=== PATIENT | female | born 1960 | race Asian ===

== ENCOUNTER 2020-04-30 05:40 | Inpatient (IN) | payer OTHER ==
[2020-04-24 12:14] VITALS: BP 159/85
[~2020-04-30] VITALS: Ht 160 cm; Wt 78.0 kg
[~2020-04-30 05:40] MED LIST: ALLO100T30 PO; AMIT25TA PO; CHOL500045 PO; GABA-826 PO; GABA300C10 PO; LEVO25TA4 PO; METH5TAB6 PO; METO50TA82 PO; NORE0.3535 PO; PANT40TA3 PO
[2020-04-30] MEDS ORDERED: LACTATED RINGERS 1,000 ML IV SCH (06:24)
[2020-04-30] MEDS ORDERED: METO50TA82 PO (06:30)
[2020-04-30] MEDS ORDERED: GABA100C PO (06:30)
[2020-04-30] MEDS ORDERED: PANT40TA6 PO (06:30)
[2020-04-30] MEDS ORDERED: CHLORHEXIDINE 15 ML UDC MM ONE (06:30)
[2020-04-30] MEDS ORDERED: AMIT25TA PO (06:30)
[2020-04-30] MEDS ORDERED: ALLO300T PO (06:30)
[2020-04-30] MEDS ORDERED: LEVO100T5 PO (06:30)
[2020-04-30] MEDS ORDERED: BACITRACIN 50,000 UNIT ONE (06:42)
[2020-04-30] MEDS ORDERED: MIDAZOLAM 1 MG/ML, 2ML ONE (07:26)
[2020-04-30] MEDS ORDERED: FENTANYL PF 250 MCG/5ML ONE (07:27)
[2020-04-30] MEDS ORDERED: ACETAMINOPHEN 325 MG TABLET PO PRN (08:30)
[2020-04-30] MEDS ORDERED: FENTANYL PF 100 MCG/2ML IV PRN (08:30)
[2020-04-30] MEDS ORDERED: MEPERIDINE/PF 25MG/0.5ML IVPush PRN (08:30)
[2020-04-30] MEDS ORDERED: HYDROmorphone 1 MG/ML, 1ML INJ IVPush PRN (08:30)
[2020-04-30] MEDS ORDERED: EPHEDRINE 50 MG/ML, 1ML IM PRN (08:30)
[2020-04-30] MEDS ORDERED: OXYcodone 5 MG/5 ML ORAL.SOL UDC PO PRN (08:30)
[2020-04-30] MEDS ORDERED: DIPHENHYDRAMINE 50 MG/ML, 1ML IVPush PRN ×2 (08:30→12:30)
[2020-04-30] MEDS ORDERED: ALBUTEROL SULFATE 2.5 MG/3 ML NPPB PRN (08:30)
[2020-04-30] MEDS ORDERED: METHOCARBAMOL 1,000 MG in DEXTROSE 5% 100 ML IV PRN (08:30)
[2020-04-30] MEDS ORDERED: LABETALOL 5MG/ML, 20ML IV PRN (08:30)
[2020-04-30] MEDS ORDERED: hydrALAzine 20 MG/ML, 1ML IV PRN (08:30)
[2020-04-30] MEDS ORDERED: LORazepam 2 MG/ML, 1ML IVPush PRN (08:30)
[2020-04-30] MEDS ORDERED: HEPARIN 1,000 UNITS/ML, 30ML IVPB ONE (08:37)
[2020-04-30] MEDS ORDERED: VANCOMYCIN 1,000 MG IM ONE (08:39)
[2020-04-30] MEDS ORDERED: DEXAMETHASONE 4 MG/ML, 1ML ONE (09:20)
[2020-04-30] MEDS ORDERED: SUCCINYLCHOLINE 20 MG/ML, 10ML ONE (09:20)
[2020-04-30] MEDS ORDERED: NEOSTIGMINE 1 MG/ML, 10ML ONE (09:20)
[2020-04-30] MEDS ORDERED: ONDANSETRON 2MG/ML, 2ML ONE (09:20)
[2020-04-30] MEDS ORDERED: ROCURONIUM 10MG/ML,5ML ONE (09:20)
[2020-04-30] MEDS ORDERED: PROPOFOL 10 MG/ML, 20ML ONE (09:20)
[2020-04-30] MEDS ORDERED: GLYCOPYRROLATE 0.2MG/1ML, 5ML ONE (09:20)
[2020-04-30] MEDS ORDERED: CEFAZOLIN 1,000 MG ONE (09:20)
[2020-04-30] MEDS ORDERED: OXYcodone 5 MG/5 ML ORAL.SOL UDC ONE (10:41)
[2020-04-30] MEDS ORDERED: ACETAMINOPHEN 650 MG/20.3 ML UDC ONE (10:41)
[2020-04-30] MEDS ORDERED: FENTANYL PF 100 MCG/2ML ONE (10:41)
[2020-04-30] MEDS ORDERED: VANCOMYCIN 1,000 MG ONE (12:14)
[2020-04-30] MEDS ORDERED: BISACODYL 10 MG SUPP PR PRN (12:30)
[2020-04-30] MEDS ORDERED: ONDANSETRON 2MG/ML, 2ML IV PRN (12:30)
[2020-04-30] MEDS ORDERED: HYDROcodone/APAP 10/325 MG TABLET PO PRN (12:30)
[2020-04-30] MEDS ORDERED: DIPHENHYDRAMINE 50 MG/ML, 1ML IM PRN (12:30)
[2020-04-30] MEDS ORDERED: morphine SULFATE 10 MG/ML, 1ML IV PRN (12:30)
[2020-04-30] MEDS: HYDROcodone/APAP 5/325 TABLET PO PRN ×2 (12:57→18:21)
[2020-04-30] MEDS: METHOCARBAMOL 750 MG TABLET PO SCH ×2 (13:00→20:07)
[2020-04-30] MEDS ORDERED: DIPHENHYDRAMINE 25 MG CAPSULE PO PRN (13:00)
[2020-04-30 13:43] VITALS: BP 98/58
[2020-04-30] MEDS ORDERED: METHOCARBAMOL 1,000 MG in DEXTROSE 5% 100 ML IV ONE (14:00)
[2020-04-30] MEDS: D5%-0.9% NACL+KCL 20MEQ 1,000 ML IV SCH (16:09)
[2020-04-30] MEDS: CEFAZOLIN PMX 1GM/50ML 50 ML IVPB SCH (16:11)
[2020-04-30 18:52] VITALS: BP 101/60
[2020-04-30] MEDS: METHOCARBAMOL 750 MG in DEXTROSE 5% 100 ML IV SCH (20:06)
[2020-04-30] MEDS: GABAPENTIN 100 MG CAPSULE PO SCH (20:07)
[2020-04-30] MEDS: AMITRIPTYLINE 25 MG TABLET PO SCH (20:07)
[2020-05-01 00:20] VITALS: BP 107/59
[2020-05-01] MEDS: CEFAZOLIN PMX 1GM/50ML 50 ML IVPB SCH (00:26)
[2020-05-01] MEDS: HYDROcodone/APAP 5/325 TABLET PO PRN ×5 (00:31→21:44)
[2020-05-01] MEDS: D5%-0.9% NACL+KCL 20MEQ 1,000 ML IV SCH ×2 (03:48→20:00)
[2020-05-01] MEDS: METHOCARBAMOL 750 MG in DEXTROSE 5% 100 ML IV SCH ×3 (03:48→21:37)
[2020-05-01 04:06] VITALS: BP 104/62
[2020-05-01] MEDS: METHOCARBAMOL 750 MG TABLET PO SCH ×2 (05:00→13:00)
[2020-05-01] MEDS: LEVOTHYROXINE 100 MCG TABLET PO SCH (05:33)
[2020-05-01] MEDS: ENOXAPARIN 30 MG/0.3 ML SQ SCH ×2 (05:33→17:32)
[2020-05-01] MEDS: PANTOPRAZOLE 40MG TABLET PO SCH (05:34)
[2020-05-01 05:36] LABS: BASOPHILS # (AUTO) 0.16 x10^3/uL (0-0.1); BASOPHILS % (AUTO) 1 % (0-1); EOSINOPHILS # (AUTO) 0.01 x10^3/uL (0-0.4); EOSINOPHILS % (AUTO) 0 % (1-7); LYMPHOCYTES # (AUTO) 1.84 x10^3/uL (1-3.4); LYMPHOCYTES % (AUTO) 13 % (22-44); MD NO; MEAN CORPUSCULAR HEMOGLOBIN 31.1 pg (27.0-34.8); MEAN CORPUSCULAR HGB CONC 32.9 g/dL (32.4-35.8); MEAN PLATELET VOLUME 8.8 fL (7.4-10.4); MONOCYTES # (AUTO) 0.69 x10^3/uL (0.2-0.8); MONOCYTES % (AUTO) 5 % (2-9); NEUTROPHILS # (AUTO) 11.56 x10^3/uL (1.8-6.8); NEUTROPHILS % (AUTO) 81 % (42-75); PLATELET COUNT 310 x10^3/uL (130-400); RED BLOOD COUNT 4.16 x10^6/uL (3.82-5.3); RED CELL DISTRIBUTION WIDTH 13.8 % (9.6-15.2)
[2020-05-01 05:44] LABS: ANION GAP 8 mmol/L (5-15); CALCIUM 7.9 mg/dL (8.5-10.1); CHLORIDE 109 mmol/L (98-107); CREATININE 0.96 mg/dL (0.55-1.02)
[2020-05-01 06:46] VITALS: BP 91/56
[2020-05-01] MEDS: METOPROLOL TARTRATE 50 MG TAB PO SCH (09:00)
[2020-05-01] MEDS: ALLOPURINOL 300 MG TABLET PO SCH (09:15)
[2020-05-01] MEDS: SENNA/DOCUSATE TABLET PO SCH ×2 (09:15→21:39)
[2020-05-01] MEDS: CHOLECALCIFEROL 5,000u TAB PO SCH (09:15)
[2020-05-01 15:03] VITALS: BP_SYST 100; BP_SYST 90; BP_DIAS 51; BP_DIAS 64
[2020-05-01] MEDS: MAGNESIUM HYDROXIDE 8%, 30ML UDC PO PRN (17:44)
[2020-05-01 18:39] VITALS: BP 127/82
[2020-05-01] MEDS: GABAPENTIN 100 MG CAPSULE PO SCH (21:38)
[2020-05-01] MEDS: AMITRIPTYLINE 25 MG TABLET PO SCH (21:39)
[2020-05-02 02:16] VITALS: BP 114/71
[2020-05-02 05:02] LABS: ANION GAP 8 mmol/L (5-15); CALCIUM 7.8 mg/dL (8.5-10.1); CHLORIDE 110 mmol/L (98-107)
[2020-05-02 05:07] LABS: BASOPHILS # (AUTO) 0.05 x10^3/uL (0-0.1); BASOPHILS % (AUTO) 1 % (0-1); EOSINOPHILS # (AUTO) 0.21 x10^3/uL (0-0.4); EOSINOPHILS % (AUTO) 2 % (1-7); LYMPHOCYTES # (AUTO) 3.65 x10^3/uL (1-3.4); LYMPHOCYTES % (AUTO) 33 % (22-44); MD NO; MEAN CORPUSCULAR HEMOGLOBIN 30.6 pg (27.0-34.8); MEAN CORPUSCULAR HGB CONC 31.9 g/dL (32.4-35.8); MEAN PLATELET VOLUME 8.2 fL (7.4-10.4); MONOCYTES # (AUTO) 0.77 x10^3/uL (0.2-0.8); MONOCYTES % (AUTO) 7 % (2-9); NEUTROPHILS # (AUTO) 6.36 x10^3/uL (1.8-6.8); NEUTROPHILS % (AUTO) 58 % (42-75); PLATELET COUNT 283 x10^3/uL (130-400); RED BLOOD COUNT 4.02 x10^6/uL (3.82-5.3); RED CELL DISTRIBUTION WIDTH 13.9 % (9.6-15.2)
[2020-05-02] MEDS: D5%-0.9% NACL+KCL 20MEQ 1,000 ML IV SCH (06:00)
[2020-05-02] MEDS: ENOXAPARIN 30 MG/0.3 ML SQ SCH (06:46)
[2020-05-02] MEDS: LEVOTHYROXINE 100 MCG TABLET PO SCH (06:46)
[2020-05-02] MEDS: PANTOPRAZOLE 40MG TABLET PO SCH (06:47)
[2020-05-02] MEDS: METHOCARBAMOL 750 MG in DEXTROSE 5% 100 ML IV SCH ×2 (06:47→10:11)
[2020-05-02 06:53] VITALS: BP 122/76
[2020-05-02] MEDS: HYDROcodone/APAP 5/325 TABLET PO PRN ×2 (08:31→12:14)
[2020-05-02] MEDS: SENNA/DOCUSATE TABLET PO SCH (08:31)
[2020-05-02] MEDS: ALLOPURINOL 300 MG TABLET PO SCH (08:32)
[2020-05-02] MEDS: METOPROLOL TARTRATE 50 MG TAB PO SCH (08:32)
[2020-05-02] MEDS: CHOLECALCIFEROL 5,000u TAB PO SCH (08:32)
[2020-05-02] MEDS: MAGNESIUM HYDROXIDE 8%, 30ML UDC PO PRN (08:32)
[2020-05-02] MEDS ORDERED: METH750T87 PO (10:48)
[2020-05-02] MEDS ORDERED: ENOX40SY4 SQ (10:49)
[2020-05-02] MEDS ORDERED: HYDR-3246 PO (10:52)
[2020-05-02 12:51] VITALS: BP 102/68
[2020-05-02] MEDS ORDERED: METHOCARBAMOL 750 MG TABLET PO SCH (15:00)
[2020-06-05] MEDS ORDERED: HYDR-3240 PO (15:29)
== END 2020-05-02 14:00 | disposition home or self-care (01) | DRG 460 ==
LOC: ORIP 05:40 → 4NE 11:38 → DCLOUNGE 05-02 13:30
PROVIDERS: ADMIT Orthopaedic Surgery Orthopaedic Surgery of the Spine; ATTEND Orthopaedic Surgery Orthopaedic Surgery of the Spine
PROC: 0SB40ZZ Excision of Lumbosacral Disc, Open Approach (ICD-10-PCS; 2020-04-30)
PROC: 01NB0ZZ Release Lumbar Nerve, Open Approach (ICD-10-PCS; 2020-04-30)
PROC: 01NR0ZZ Release Sacral Nerve, Open Approach (ICD-10-PCS; 2020-04-30)
PROC: 3E0U0GB Introduction of Recombinant Bone Morphogenetic Protein into Joints, Open Approach (ICD-10-PCS; 2020-04-30)
PROC: 0SG30A0 Fusion of Lumbosacral Joint with Interbody Fusion Device, Anterior Approach, Anterior Column, Open Approach (ICD-10-PCS; principal; 2020-04-30 07:30)
DX: M51.17 Intervertebral disc disorders with radiculopathy, lumbosacral region (principal); G89.29 Other chronic pain; E66.01 Morbid (severe) obesity due to excess calories; Z20.828 Contact with and (suspected) exposure to other viral communicable diseases; Z68.30 Body mass index [BMI] 30.0-30.9, adult; Z79.899 Other long term (current) drug therapy
CPT/HCPCS: 36415; 72100; 74018; 80048; 85025; 87635; C1713; G0378; J0690; J1100; J1644; J1650; J2250; J2405; J2704; J2710; J3010; J3370; C1762; C1889; J0330; J2800; J3480; J7120

== ENCOUNTER → 2020-06-05 | Outpatient (CLI) | payer OTHER ==
[~2020-06-05] MED LIST changes: +ALLO300T PO; +ENOX40SY4 SQ; +GABA100C PO; +HYDR-3240 PO; +HYDR-3246 PO; +LEVO100T5 PO; +METH750T87 PO; +PANT40TA6 PO
[2020-06-05 15:43] LABS: MICROSCOPIC NOT IND
[2020-06-05 15:45] LABS: BASOPHILS # (AUTO) 0.03 x10^3/uL (0-0.1); BASOPHILS % (AUTO) 0 % (0-1); EOSINOPHILS # (AUTO) 0.07 x10^3/uL (0-0.4); EOSINOPHILS % (AUTO) 1 % (1-7); LYMPHOCYTES # (AUTO) 2.61 x10^3/uL (1-3.4); LYMPHOCYTES % (AUTO) 39 % (22-44); MD NO; MEAN CORPUSCULAR HEMOGLOBIN 31.2 pg (27.0-34.8); MEAN CORPUSCULAR HGB CONC 33.1 g/dL (32.4-35.8); MEAN CORPUSCULAR VOLUME 94.2 fL (80-100); MEAN PLATELET VOLUME 8.9 fL (7.4-10.4); MONOCYTES # (AUTO) 0.38 x10^3/uL (0.2-0.8); MONOCYTES % (AUTO) 6 % (2-9); NEUTROPHILS # (AUTO) 3.55 x10^3/uL (1.8-6.8); NEUTROPHILS % (AUTO) 54 % (42-75); PLATELET COUNT 263 x10^3/uL (130-400); RED BLOOD COUNT 4.91 x10^6/uL (3.82-5.3); RED CELL DISTRIBUTION WIDTH 13.7 % (9.6-15.2)
[2020-06-05 15:53] LABS: INTERNATIONAL NORMALIZED RATIO 0.94 (0.93-1.1); PROTHROMBIN TIME 9.7 Seconds (9.6-11.5)
[2020-06-05 15:55] LABS: ALANINE AMINOTRANSFERASE 29 U/L (12-78); ALBUMIN 4.1 g/dL (3.4-5.0); ANION GAP 4 mmol/L (5-15); CALCIUM 10.1 mg/dL (8.5-10.1); CHLORIDE 112 mmol/L (98-107); CREATININE 0.87 mg/dL (0.55-1.02)
[2020-06-05 15:57] LABS: ALKALINE PHOSPHATASE 151 U/L (45-117); BILIRUBIN,TOTAL 0.9 mg/dL (0.2-1.0)
== END | disposition home or self-care (01) ==
LOC: STAR 14:08
PROVIDERS: ATTEND Orthopaedic Surgery Orthopaedic Surgery of the Spine
DX: Z01.812 Encounter for preprocedural laboratory examination (principal); Z20.828 Contact with and (suspected) exposure to other viral communicable diseases; M43.16 Spondylolisthesis, lumbar region
CPT/HCPCS: 36415; 80053; 81003; 85025; 85610; 85730; 87635

== ENCOUNTER 2020-06-11 07:30 | Inpatient (IN) | payer OTHER ==
[~2020-06-11] VITALS: Ht 160 cm; Wt 86.3 kg
[2020-06-13] MEDS ORDERED: EPINEPHRINE 1 MG/ML, 1ML ONE ×2 (09:06→14:17)
[2020-06-13] MEDS ORDERED: BUPIVACAINE/PF 0.25% ONE ×2 (09:06→14:17)
[2020-06-13] MEDS ORDERED: LIDOCAINE/PF 0.5% ,50ML ONE ×2 (09:06→14:17)
[2020-06-13] MEDS ORDERED: VANCOMYCIN 1,000 MG ONE ×2 (09:06→14:17)
[2020-06-13 10:51] VITALS: BP 122/84
[2020-06-13] MEDS ORDERED: LACTATED RINGERS 1,000 ML IV SCH (10:57)
[2020-06-13] MEDS ORDERED: CHLORHEXIDINE 15 ML UDC MM ONE (11:00)
[2020-06-13] MEDS ORDERED: MIDAZOLAM 1 MG/ML, 2ML ONE (11:45)
[2020-06-13] MEDS ORDERED: FENTANYL PF 250 MCG/5ML ONE ×2 (11:45→16:09)
[2020-06-13] MEDS ORDERED: PROPOFOL 10 MG/ML, 20ML ONE (11:49)
[2020-06-13] MEDS ORDERED: DEXAMETHASONE 4 MG/ML, 1ML ONE (11:49)
[2020-06-13] MEDS ORDERED: NEOSTIGMINE 1 MG/ML, 10ML ONE (11:49)
[2020-06-13] MEDS ORDERED: ONDANSETRON 2MG/ML, 2ML ONE (11:49)
[2020-06-13] MEDS ORDERED: ROCURONIUM 10MG/ML,5ML ONE (11:49)
[2020-06-13] MEDS ORDERED: GLYCOPYRROLATE 0.2MG/1ML, 5ML ONE (11:49)
[2020-06-13] MEDS ORDERED: CEFAZOLIN 1,000 MG ONE (11:49)
[2020-06-13] MEDS ORDERED: FENTANYL PF 100 MCG/2ML IV PRN (14:30)
[2020-06-13] MEDS ORDERED: MEPERIDINE/PF 25MG/0.5ML IVPush PRN (14:30)
[2020-06-13] MEDS ORDERED: ACETAMINOPHEN 325 MG TABLET PO PRN (14:30)
[2020-06-13] MEDS ORDERED: hydrALAzine 20 MG/ML, 1ML IV PRN (14:30)
[2020-06-13] MEDS ORDERED: HYDROmorphone 1 MG/ML, 1ML INJ IVPush PRN (14:30)
[2020-06-13] MEDS ORDERED: PROMETHAZINE 25 MG/ML, 1ML IVPush PRN (14:30)
[2020-06-13] MEDS ORDERED: OXYcodone 5 MG/5 ML ORAL.SOL UDC PO PRN (14:30)
[2020-06-13] MEDS ORDERED: HALOPERIDOL 5 MG/ML IV PRN (14:30)
[2020-06-13] MEDS ORDERED: LABETALOL 5MG/ML, 20ML IV PRN (14:30)
[2020-06-13] MEDS ORDERED: morphine SULFATE 10 MG/ML, 1ML IVPush PRN (14:30)
[2020-06-13] MEDS ORDERED: OXYcodone 5 MG/5 ML ORAL.SOL UDC ONE (18:21)
[2020-06-13] MEDS ORDERED: FENTANYL PF 100 MCG/2ML ONE (18:21)
[2020-06-13 19:00] VITALS: BP 104/57
[2020-06-13] MEDS ORDERED: ONDANSETRON 2MG/ML, 2ML IV PRN (19:30)
[2020-06-13] MEDS ORDERED: MAGNESIUM HYDROXIDE 8%, 30ML UDC PO PRN (19:30)
[2020-06-13] MEDS ORDERED: PROMETHAZINE 25 MG/ML, 1ML IM PRN (19:30)
[2020-06-13] MEDS ORDERED: DIPHENHYDRAMINE 50 MG/ML, 1ML IVPush PRN (19:30)
[2020-06-13] MEDS ORDERED: SODIUM CHLORIDE 0.9% 1,000ML IV PRN (19:30)
[2020-06-13] MEDS ORDERED: DIPHENHYDRAMINE 50 MG/ML, 1ML IM PRN (19:30)
[2020-06-13] MEDS ORDERED: DIPHENHYDRAMINE 25 MG CAPSULE PO PRN (19:30)
[2020-06-13] MEDS ORDERED: HYDROcodone/APAP 10/325 MG TABLET PO PRN (19:30)
[2020-06-13] MEDS ORDERED: BISACODYL 10 MG SUPP PR PRN (19:30)
[2020-06-13] MEDS ORDERED: METHOCARBAMOL 750 MG TABLET PO PRN (20:00)
[2020-06-13] MEDS ORDERED: morphine SULFATE 10 MG/ML, 1ML IV PRN (20:00)
[2020-06-13] MEDS: AMITRIPTYLINE 25 MG TABLET PO SCH (21:56)
[2020-06-13] MEDS: GABAPENTIN 100 MG CAPSULE PO SCH (21:56)
[2020-06-13] MEDS: SENNA/DOCUSATE TABLET PO SCH (21:56)
[2020-06-13] MEDS: ALLOPURINOL 300 MG TABLET PO SCH (21:57)
[2020-06-13] MEDS: CEFAZOLIN PMX 1GM/50ML 50 ML IVPB SCH (22:54)
[2020-06-14 01:42] VITALS: BP 97/46
[2020-06-14 04:29] VITALS: BP 106/64
[2020-06-14] MEDS: D5%-0.9% NACL+KCL 20MEQ 1,000 ML IV SCH ×3 (05:10→23:01)
[2020-06-14] MEDS: LEVOTHYROXINE 100 MCG TABLET PO SCH (05:55)
[2020-06-14 06:00] LABS: ANION GAP 9 mmol/L (5-15); CHLORIDE 107 mmol/L (98-107)
[2020-06-14 06:01] LABS: CALCIUM 8.9 mg/dL (8.5-10.1); CREATININE 0.96 mg/dL (0.55-1.02)
[2020-06-14 06:15] LABS: BASOPHILS # (AUTO) 0.06 x10^3/uL (0-0.1); BASOPHILS % (AUTO) 1 % (0-1); EOSINOPHILS % (AUTO) 0 % (1-7); LYMPHOCYTES # (AUTO) 1.49 x10^3/uL (1-3.4); LYMPHOCYTES % (AUTO) 13 % (22-44); MD NO; MEAN CORPUSCULAR HEMOGLOBIN 30.8 pg (27.0-34.8); MEAN CORPUSCULAR HGB CONC 32.3 g/dL (32.4-35.8); MEAN CORPUSCULAR VOLUME 95.2 fL (80-100); MEAN PLATELET VOLUME 8.2 fL (7.4-10.4); MONOCYTES # (AUTO) 0.27 x10^3/uL (0.2-0.8); MONOCYTES % (AUTO) 2 % (2-9); NEUTROPHILS # (AUTO) 10.13 x10^3/uL (1.8-6.8); NEUTROPHILS % (AUTO) 85 % (42-75); PLATELET COUNT 282 x10^3/uL (130-400); RED CELL DISTRIBUTION WIDTH 13.5 % (9.6-15.2)
[2020-06-14] MEDS: CEFAZOLIN PMX 1GM/50ML 50 ML IVPB SCH (06:40)
[2020-06-14 08:10] VITALS: BP 113/69
[2020-06-14] MEDS: PANTOPRAZOLE 40MG TABLET PO SCH (09:04)
[2020-06-14] MEDS: METOPROLOL TARTRATE 50 MG TAB PO SCH (09:04)
[2020-06-14] MEDS: SENNA/DOCUSATE TABLET PO SCH ×2 (09:04→21:11)
[2020-06-14 14:45] VITALS: BP 103/63
[2020-06-14 19:29] VITALS: BP 114/77
[2020-06-14] MEDS: ALLOPURINOL 300 MG TABLET PO SCH (21:11)
[2020-06-14] MEDS: GABAPENTIN 100 MG CAPSULE PO SCH (21:11)
[2020-06-14] MEDS: AMITRIPTYLINE 25 MG TABLET PO SCH (21:11)
[2020-06-15 03:19] VITALS: BP 100/61
[2020-06-15] MEDS: LEVOTHYROXINE 100 MCG TABLET PO SCH (05:36)
[2020-06-15 05:44] LABS: ANION GAP 5 mmol/L (5-15); CALCIUM 8.5 mg/dL (8.5-10.1); CHLORIDE 106 mmol/L (98-107)
[2020-06-15 05:45] LABS: CREATININE 0.86 mg/dL (0.55-1.02)
[2020-06-15 05:46] LABS: BASOPHILS # (AUTO) 0.03 x10^3/uL (0-0.1); BASOPHILS % (AUTO) 0 % (0-1); EOSINOPHILS # (AUTO) 0.14 x10^3/uL (0-0.4); EOSINOPHILS % (AUTO) 1 % (1-7); LYMPHOCYTES # (AUTO) 3.29 x10^3/uL (1-3.4); LYMPHOCYTES % (AUTO) 29 % (22-44); MD NO; MEAN CORPUSCULAR HEMOGLOBIN 30.7 pg (27.0-34.8); MEAN CORPUSCULAR HGB CONC 32.2 g/dL (32.4-35.8); MEAN CORPUSCULAR VOLUME 95.4 fL (80-100); MEAN PLATELET VOLUME 8.2 fL (7.4-10.4); MONOCYTES # (AUTO) 0.78 x10^3/uL (0.2-0.8); MONOCYTES % (AUTO) 7 % (2-9); NEUTROPHILS # (AUTO) 6.96 x10^3/uL (1.8-6.8); NEUTROPHILS % (AUTO) 62 % (42-75); PLATELET COUNT 273 x10^3/uL (130-400); RED BLOOD COUNT 3.84 x10^6/uL (3.82-5.3)
[2020-06-15 07:28] VITALS: BP 99/62
[2020-06-15] MEDS: METOPROLOL TARTRATE 50 MG TAB PO SCH (08:15)
[2020-06-15] MEDS: SENNA/DOCUSATE TABLET PO SCH ×2 (08:15→21:51)
[2020-06-15] MEDS: PANTOPRAZOLE 40MG TABLET PO SCH (08:15)
[2020-06-15] MEDS: D5%-0.9% NACL+KCL 20MEQ 1,000 ML IV SCH ×2 (08:16→20:45)
[2020-06-15] MEDS: HYDROcodone/APAP 5/325 TABLET PO PRN ×5 (09:01→22:08)
[2020-06-15 13:53] VITALS: BP 102/64
[2020-06-15 21:01] VITALS: BP 106/69
[2020-06-15] MEDS: GABAPENTIN 100 MG CAPSULE PO SCH (21:51)
[2020-06-15] MEDS: ALLOPURINOL 300 MG TABLET PO SCH (21:51)
[2020-06-15] MEDS: AMITRIPTYLINE 25 MG TABLET PO SCH (21:51)
[2020-06-16 02:39] VITALS: BP 132/76
[2020-06-16] MEDS: HYDROcodone/APAP 5/325 TABLET PO PRN ×7 (03:02→21:30)
[2020-06-16] MEDS: LEVOTHYROXINE 100 MCG TABLET PO SCH (05:06)
[2020-06-16] MEDS: D5%-0.9% NACL+KCL 20MEQ 1,000 ML IV SCH ×3 (05:10→22:45)
[2020-06-16 06:19] LABS: BASOPHILS # (AUTO) 0.05 x10^3/uL (0-0.1); BASOPHILS % (AUTO) 1 % (0-1); EOSINOPHILS % (AUTO) 1 % (1-7); LYMPHOCYTES # (AUTO) 2.84 x10^3/uL (1-3.4); LYMPHOCYTES % (AUTO) 36 % (22-44); MD NO; MEAN CORPUSCULAR HEMOGLOBIN 31.2 pg (27.0-34.8); MEAN CORPUSCULAR HGB CONC 32.8 g/dL (32.4-35.8); MEAN CORPUSCULAR VOLUME 94.9 fL (80-100); MEAN PLATELET VOLUME 8.1 fL (7.4-10.4); MONOCYTES % (AUTO) 8 % (2-9); NEUTROPHILS # (AUTO) 4.36 x10^3/uL (1.8-6.8); NEUTROPHILS % (AUTO) 55 % (42-75); PLATELET COUNT 257 x10^3/uL (130-400); RED CELL DISTRIBUTION WIDTH 13.8 % (9.6-15.2)
[2020-06-16 07:31] VITALS: BP 112/75
[2020-06-16] MEDS: PANTOPRAZOLE 40MG TABLET PO SCH (08:09)
[2020-06-16] MEDS: METOPROLOL TARTRATE 50 MG TAB PO SCH (08:09)
[2020-06-16] MEDS: SENNA/DOCUSATE TABLET PO SCH ×2 (08:09→21:30)
[2020-06-16 13:19] VITALS: BP 113/68
[2020-06-16 20:02] VITALS: BP 129/76
[2020-06-16] MEDS: AMITRIPTYLINE 25 MG TABLET PO SCH (21:30)
[2020-06-16] MEDS: GABAPENTIN 100 MG CAPSULE PO SCH (21:30)
[2020-06-16] MEDS: ALLOPURINOL 300 MG TABLET PO SCH (21:30)
[2020-06-17] MEDS: HYDROcodone/APAP 5/325 TABLET PO PRN ×6 (01:30→21:48)
[2020-06-17 02:13] VITALS: BP 121/71
[2020-06-17 05:05] LABS: BASOPHILS # (AUTO) 0.04 x10^3/uL (0-0.1); BASOPHILS % (AUTO) 0 % (0-1); EOSINOPHILS # (AUTO) 0.12 x10^3/uL (0-0.4); EOSINOPHILS % (AUTO) 1 % (1-7); LYMPHOCYTES % (AUTO) 32 % (22-44); MD NO; MEAN CORPUSCULAR HEMOGLOBIN 31.7 pg (27.0-34.8); MEAN CORPUSCULAR HGB CONC 33.6 g/dL (32.4-35.8); MEAN CORPUSCULAR VOLUME 94.3 fL (80-100); MEAN PLATELET VOLUME 8.1 fL (7.4-10.4); MONOCYTES # (AUTO) 0.76 x10^3/uL (0.2-0.8); MONOCYTES % (AUTO) 9 % (2-9); NEUTROPHILS # (AUTO) 5.05 x10^3/uL (1.8-6.8); NEUTROPHILS % (AUTO) 58 % (42-75); PLATELET COUNT 274 x10^3/uL (130-400); RED BLOOD COUNT 3.69 x10^6/uL (3.82-5.3); RED CELL DISTRIBUTION WIDTH 13.7 % (9.6-15.2)
[2020-06-17] MEDS: LEVOTHYROXINE 100 MCG TABLET PO SCH (05:35)
[2020-06-17 07:08] VITALS: BP 113/71
[2020-06-17] MEDS: PANTOPRAZOLE 40MG TABLET PO SCH (08:55)
[2020-06-17] MEDS: SENNA/DOCUSATE TABLET PO SCH ×2 (08:55→21:00)
[2020-06-17] MEDS: METOPROLOL TARTRATE 50 MG TAB PO SCH (08:55)
[2020-06-17] MEDS: D5%-0.9% NACL+KCL 20MEQ 1,000 ML IV SCH ×2 (08:55→22:45)
[2020-06-17 12:44] VITALS: BP 115/77
[2020-06-17 20:20] VITALS: BP 113/70
[2020-06-17] MEDS: AMITRIPTYLINE 25 MG TABLET PO SCH (21:48)
[2020-06-17] MEDS: GABAPENTIN 100 MG CAPSULE PO SCH (21:48)
[2020-06-17] MEDS: ALLOPURINOL 300 MG TABLET PO SCH (21:48)
[2020-06-18 01:52] VITALS: BP 107/67
[2020-06-18] MEDS: HYDROcodone/APAP 5/325 TABLET PO PRN ×3 (02:13→14:01)
[2020-06-18 05:33] LABS: BASOPHILS # (AUTO) 0.04 x10^3/uL (0-0.1); BASOPHILS % (AUTO) 1 % (0-1); EOSINOPHILS # (AUTO) 0.06 x10^3/uL (0-0.4); EOSINOPHILS % (AUTO) 1 % (1-7); LYMPHOCYTES # (AUTO) 2.78 x10^3/uL (1-3.4); LYMPHOCYTES % (AUTO) 35 % (22-44); MD NO; MEAN CORPUSCULAR HEMOGLOBIN 31.3 pg (27.0-34.8); MEAN CORPUSCULAR HGB CONC 33.1 g/dL (32.4-35.8); MEAN CORPUSCULAR VOLUME 94.6 fL (80-100); MEAN PLATELET VOLUME 7.9 fL (7.4-10.4); MONOCYTES # (AUTO) 0.51 x10^3/uL (0.2-0.8); MONOCYTES % (AUTO) 6 % (2-9); NEUTROPHILS % (AUTO) 58 % (42-75); PLATELET COUNT 304 x10^3/uL (130-400); RED BLOOD COUNT 3.65 x10^6/uL (3.82-5.3); RED CELL DISTRIBUTION WIDTH 13.7 % (9.6-15.2)
[2020-06-18] MEDS: LEVOTHYROXINE 100 MCG TABLET PO SCH (06:02)
[2020-06-18 07:22] VITALS: BP 119/73
[2020-06-18] MEDS: SENNA/DOCUSATE TABLET PO SCH (07:45)
[2020-06-18] MEDS: METOPROLOL TARTRATE 50 MG TAB PO SCH (07:46)
[2020-06-18] MEDS: PANTOPRAZOLE 40MG TABLET PO SCH (07:46)
[2020-06-18] MEDS: D5%-0.9% NACL+KCL 20MEQ 1,000 ML IV SCH (08:01)
[2020-06-18] MEDS ORDERED: METH750T87 PO (12:15)
[2020-06-18] MEDS ORDERED: HYDR-3240 PO (12:21)
== END 2020-06-18 15:00 | disposition home or self-care (01) | DRG 460 ==
LOC: ORIP 06-13 10:05 → 4NE 06-13 19:09 → DCLOUNGE 06-18 14:39
PROVIDERS: ADMIT Orthopaedic Surgery Orthopaedic Surgery of the Spine; ATTEND Orthopaedic Surgery Orthopaedic Surgery of the Spine
PROC: 0SG30K1 Fusion of Lumbosacral Joint with Nonautologous Tissue Substitute, Posterior Approach, Posterior Column, Open Approach (ICD-10-PCS; principal; 2020-06-13 12:30)
DX: M48.00 Spinal stenosis, site unspecified (principal); M54.10 Radiculopathy, site unspecified
CPT/HCPCS: 36415; 72100; 72148; 76000; 80048; 85025; 87635; C1713; G0378; J0171; J0690; J1100; J2001; J2250; J2270; J2405; J2704; J2710; J3010; J3370; J3490; C1762; J3480; J7120